=== PATIENT | male | born 1965 | race Caucasian/White ===

== ENCOUNTER 2017-02-06 20:35 | Emergency (ER) | payer SELFPAY ==
--- NOTE | 2017-02-06 20:43 | EDPHY ---
H & P Time Seen by Provider: 02/06/17 20:43 HPI/ROS: CHIEF COMPLAINT: Alcohol intoxication, head trauma HISTORY OF PRESENT ILLNESS: Patient is brought to the emergency department by paramedics after he was found wandering the street with blood on his head. The patient reportedly was drinking falling forward and struck his forehead. He presents to the ED with a large scalp hematoma. The patient denies significant neck pain. The patient denies any numbness or weakness. The patient is uncertain of the events surrounding his fall earlier today. He denies any upper extremity pain, chest pain or lower extremity pain. REVIEW OF SYSTEMS: A comprehensive 10 point review of systems is otherwise negative aside from elements mentioned in the history of present illness. Source: Patient Exam Limitations: No limitations - Medical/Surgical History Hx Asthma: No Hx Chronic Respiratory Disease: No Hx Diabetes: No Hx Cardiac Disease: No Hx Renal Disease: No Hx Cirrhosis: No Hx Alcoholism: Yes Hx HIV/AIDS: No Hx Splenectomy or Spleen Trauma: No Other PMH: ETOH abuse - Social History Smoking Status: Former smoker - Physical Exam Exam: General Appearance: Alert, no distress, alcohol on breath Head: Large frontal scalp hematoma, superficial abrasions Eyes: Pupils equal, round, reactive ENT, Mouth: No hemotympanum, no oral trauma Neck: Nontender, trachea midline Respiratory: No chest wall tender, subcutaneous air, lungs clear bilaterally Cardiovascular: Regular rate and rhythm Abdomen: Abdomen is soft and nontender, pelvis stable Skin: No lacerations, No abrasion Back: No midline T/L/S pain Extremities: Nontender, full range of motion Neurological: A&Ox2 (-1 date), normal motor function, normal sensory exam Constitutional: Initial Vital Signs Temperature (C) 36.3 C 02/06/17 20:35 Heart Rate 104 H 02/06/17 20:35 Respiratory Rate 16 02/06/17 20:35 Blood Pressure 154/108 H 02/06/17 20:35 O2 Sat (%) 95 02/06/17 20:35 O2 Delivery Mode Room Air Allergies/Adverse Reactions: No Known Allergies Allergy (Unverified 06/01/14 02:09) Home Medications: Medication Instructions Recorded NK [No Known Home Meds] 02/06/17 Medical Decision Making - Diagnostics Imaging Results: Imaging Impressions Head CT 02/06/17 20:52 Impression: 1. Right frontal scalp hematoma. 2. There is no acute intracranial abnormality identified on this unenhanced CT evaluation. UNENHANCED CT SCAN OF THE CERVICAL SPINE Technique: A multidetector unenhanced helical CT scan was obtained from the clivus caudally through the upper thoracic spine, with images reformatted at 1.50 mm increments, and are reviewed in soft tissue, bone, and lung windows. Parasagittal and paracoronal reconstructed images are reviewed on the workstation. The DFOV is 19.4 cm. A dose reduction protocol was used. Findings: There is a mild levocervical curvature, and slight accentuation of the normal cervical lordosis. The cervical vertebral body heights are preserved , with no significant spondylolisthesis. There is no acute fracture, or facet malalignment. There is multilevel facet degenerative hypertrophy and some accompanying uncovertebral degenerative spondylosis. There is no focal disk herniation appreciated. The interspinous distances are normal. The craniocervical junction is normal. The predental space, and the atlantoaxial lateral mass alignment is normal. The base and the tip of the dens are normal. There is no paravertebral or epidural hematoma identified. The prevertebral soft tissues are normal. There is some biapical pleural parenchymal fibrosis. Impression: Multilevel degenerative changes, with no acute cervical osseous abnormality, or substantial change from 06/01/2014. If there is further clinical concern regarding the patient's symptoms, correlative MR imaging could be considered, if otherwise not contraindicated. Findings were discussed with Karl Bobby MD at 21:45, on 02/06/2017. Cervical Spine CT 02/06/17 20:53 Impression: 1. Right frontal scalp hematoma. 2. There is no acute intracranial abnormality identified on this unenhanced CT evaluation. UNENHANCED CT SCAN OF THE CERVICAL SPINE Technique: A multidetector unenhanced helical CT scan was obtained from the clivus caudally through the upper thoracic spine, with images reformatted at 1.50 mm increments, and are reviewed in soft tissue, bone, and lung windows. Parasagittal and paracoronal reconstructed images are reviewed on the workstation. The DFOV is 19.4 cm. A dose reduction protocol was used. Findings: There is a mild levocervical curvature, and slight accentuation of the normal cervical lordosis. The cervical vertebral body heights are preserved , with no significant spondylolisthesis. There is no acute fracture, or facet malalignment. There is multilevel facet degenerative hypertrophy and some accompanying uncovertebral degenerative spondylosis. There is no focal disk herniation appreciated. The interspinous distances are normal. The craniocervical junction is normal. The predental space, and the atlantoaxial lateral mass alignment is normal. The base and the tip of the dens are normal. There is no paravertebral or epidural hematoma identified. The prevertebral soft tissues are normal. There is some biapical pleural parenchymal fibrosis. Impression: Multilevel degenerative changes, with no acute cervical osseous abnormality, or substantial change from 06/01/2014. If there is further clinical concern regarding the patient's symptoms, correlative MR imaging could be considered, if otherwise not contraindicated. Findings were discussed with Karl Bobby MD at 21:45, on 02/06/2017. ED Course/Re-evaluation: The patient presents to the ED with alcohol intoxication and a large scalp hematoma after a fall while drinking. Given the size of the hematoma a CT scan of the head was ordered. Given the fact he is intoxicated a CT scan of the cervical spine has been ordered. The patient returns from CT scan with no evidence of an acute injury noted on his imaging studies. I re-evaluated the patient at 10:00 p.m.. We have cleaned his abrasion. There is no suturable laceration. The patient is currently intoxicated. He will be [facility] to [facility]. The patient has no additional traumatic complaints noted in the emergency department. The patient is hemodynamically stable. He is in no acute distress. Differential Diagnosis: Differential diagnosis considered includes intracranial hemorrhage, skull fracture, alcohol intoxication, cervical spine fracture Departure - Departure Disposition: Home, Routine, Self-Care Clinical Impression: Alcoholic intoxication, Scalp contusion Condition: Good Instructions: Alcohol Intoxication (ED), Scalp Contusion in Adults (ED) Referrals: [facility] 24 Hours [Outside] - As per Instructions
[2017-02-06 20:53] VITALS: RESP 16; TEMP 97.3
[2017-02-06 22:18] VITALS: BP 107/80; PULSE 87; O2SAT 97
== END 2017-02-06 22:24 | disposition home or self-care (01) ==
LOC: EDUNIT#
DX: S00.03XA Contusion of scalp, initial encounter (principal); F10.129 Alcohol abuse with intoxication, unspecified; Z87.891 Personal history of nicotine dependence; W01.198A Fall on same level from slipping, tripping and stumbling with subsequent striking against other object, initial encounter; Y92.410 Unspecified street and highway as the place of occurrence of the external cause